=== PATIENT | female | born 1970 | race Caucasian/White ===

== ENCOUNTER 2017-04-12 07:41 | Emergency (ER) | payer OTHER ==
[~2017-04-12] VITALS: Ht 162.6 cm; Wt 74.9 kg
[~2017-04-12 07:41] MED LIST: IMITREX25 MG PO; REGLAN10 MG PO
[2017-04-12] MEDS ORDERED: CITALOPRAM HBR20 MG PO (07:52)
[2017-04-12] MEDS ORDERED: CLONAZEPAM0.5 MG PO (07:52)
[2017-04-12] MEDS ORDERED: PANTOPRAZOLE SO40 MG PO (07:53)
[2017-04-12 08:42] LABS: BASOPHIL COUNT 0.1 K/uL (0-0.1); EOSINOPHIL (%) 2.7 % (0-5); EOSINOPHIL COUNT 0.3 K/uL (0-0.3); HEMATOCRIT 40.4 % (36.0-46.0); IMMATURE GRANULOCYTE (%) 0.4 % (0.0-0.7); INSTRUMENT ABS NEUTROPHIL CT 7.6 K/uL; LYMPHOCYTE COUNT 1.9 K/uL (1.0-2.8); MCHC 34.7 G/DL (30.0-36.0); MCV 92.2 FL (83-99); MEAN PLAT.VOLUME 12.4 uM^3 (9.5-12.4); MONOCYTE (%) 6.2 % (3-12); MONOCYTE COUNT 0.7 K/uL (0-0.8); NEUTROPHIL (%) 71.9 % (45-76); NEUTROPHIL COUNT 7.6 K/uL (1.8-6.4); PLATELET COUNT 160 K/uL (156-360); RBC DIS.WIDTH-CV 13.2 % (11.8-14.6); RBC DIS.WIDTH-SD 45.2 % (39-53); RED BLOOD COUNT 4.38 M/uL (3.80-5.20); WHITE BLOOD COUNT 10.6 K/uL (4.1-10.2)
[2017-04-12 08:52] LABS: CHLORIDE 110 mEq/L (99-109); POTASSIUM 3.8 mEq/L (3.7-5.4); SODIUM 137 mEq/L (136-147)
[2017-04-12 08:54] LABS: GLUCOSE 91 mg/dL (70-99)
[2017-04-12 08:55] LABS: ANION GAP 6 MEQ/L (2-14)
[2017-04-12 08:56] LABS: TOTAL BILIRUBIN 0.5 mg/dL (0.0-1.0)
[2017-04-12 08:57] LABS: ALKALINE PHOSPHATASE 66 IU/L (3-129)
[2017-04-12 08:58] LABS: GFR ESTIMATE (CALCULATED) > 59 mL/min/
[2017-04-12 08:59] LABS: TROP-I INTERPRETATION NEGATIVE; TROPONIN-I < 0.01 ng/mL (0.0-0.30); UREA NITROGEN (BUN) 8 mg/dL (9-23)
[2017-04-12 09:07] LABS: QUANTITATIVE HCG < 4.0 MIU/ML
[2017-04-12 10:34] LABS: D-DIMER ELISA < 150.00 ng/mLDDU (<230)
[2017-04-12 11:42] VITALS: BP 106/77
== END 2017-04-12 11:42 | disposition left against medical advice (07) ==
LOC: EME 07:41
PROVIDERS: Emergency Medicine
DX: R55 Syncope and collapse (principal); R00.2 Palpitations; S00.03XA Contusion of scalp, initial encounter; S70.02XA Contusion of left hip, initial encounter; M54.2 Cervicalgia; W18.30XA Fall on same level, unspecified, initial encounter; Y93.01 Activity, walking, marching and hiking; Z86.73 Personal history of transient ischemic attack (TIA), and cerebral infarction without residual deficits; F17.210 Nicotine dependence, cigarettes, uncomplicated
CPT/HCPCS: 70450; 71010; 72125; 73502; 80053; 81003; 84484; 84702; 85025; 85379; 93005; 99281; 99285; J2270; J2405